=== PATIENT | female | born 1970 | race Caucasian/White ===

== ENCOUNTER 2018-05-25 08:17 | Day surgery (SDC) | payer MEDICAID ==
[~2018-05-25 08:17] MED LIST: Midazolam 1 MG/ML 2 ML SDV ONE; Propofol 200 MG/20 ML SDV ONE; fentaNYL 100 MCG/2 ML SDV ONE
[2018-05-25] MEDS ORDERED: MVI, Adult with Vitamin K 10 ML, Thiamine 100 MG, Chromium/Copper/Mang/Selen/Zn 1 ML in... IV ONE ×4 (09:00)
[2018-05-25] MEDS ORDERED: Glycopyrrolate 0.2 MG/ML 2 ML SDV IVPUSH ONE (09:00)
[2018-05-25] MEDS ORDERED: Lactated Ringers 1,000 ML IV SCH (09:00)
[2018-05-25] MEDS ORDERED: Midazolam 1 MG/ML 2 ML SDV ONE (09:07)
[2018-05-25] MEDS ORDERED: fentaNYL 100 MCG/2 ML SDV ONE (09:07)
[2018-05-25] MEDS ORDERED: Propofol 200 MG/20 ML SDV ONE (09:07)
--- NOTE | 2018-05-26 11:09 | OR ---
DATE OF PROCEDURE: 05/25/2018 PREOPERATIVE DIAGNOSIS: Severe reflux and aspiration status post placement of laparoscopic adjustable gastric band. POSTOPERATIVE DIAGNOSES: 1. Marked esophageal dilation with retained esophageal fluid above laparoscopic adjustable gastric band. 2. Polypoid mass (1.5 cm) at junction of body and antrum of stomach. OPERATIVE PROCEDURE: Esophagogastroduodenoscopy with gastric polypectomy (91667). ANESTHESIA: IV sedation. INDICATIONS FOR PROCEDURE: A 47-year-old status post a laparoscopic adjustable gastric band placement in 2007. In the last several months, the patient has had progressively severe heartburn. This is persistent despite the band being deflated, and she is also having apparently some aspiration episodes related to the retained fluid within the esophagus. Plan is to proceed with upper endoscopy for evaluation of the band status. The potential risks of the procedure including bleeding and perforation were discussed, and the patient wishes to proceed. DETAILS OF PROCEDURE: The patient was taken to the operating room, placed in a left lateral decubitus position. IV sedation was administered after which the upper GI endoscope was passed orally into the esophagus. The esophagus was noted to be markedly dilated and distally was reddened and raw in appearance. A large amount of fluid was present within the esophagus along with some scattered solid food particles. This was since evacuated by means of suction at this point. As the scope passed further through the upper aspect of the stomach, the imprint of the band was present. This was widely open; however, there was no mechanical obstruction at the level of the band and the band appeared to be generally in a normal position. Within the stomach, retroflexion view failed to show any areas of erosion of the band, and as one peered down toward the more distal stomach, a polypoid mass was present, more or less at the junction of the body and antrum of the stomach. This measured around 1.5 cm. The pyloric channel and visualized portion of the duodenum were unremarkable. At this point, the polyp was removed by means of the cautery snare technique, and this was grasped with a basket and then retrieved. Good hemostasis was noted at the polypectomy site and the procedure then concluded. The plan will be to await the pathology report on the polypectomy, and assuming that is a benign entity, we would then address the insurance carrier regarding conversion of the band status to the Antonio-en-Y gastric bypass status. Elie Sahni MD /[id number]
== END 2018-05-25 13:00 | disposition home or self-care (01) ==
LOC: JP.SDS 08:17
PROVIDERS: ATTEND Surgery
DX: K21.9 Gastro-esophageal reflux disease without esophagitis (principal); K31.7 Polyp of stomach and duodenum; F17.210 Nicotine dependence, cigarettes, uncomplicated; Z98.84 Bariatric surgery status
CPT/HCPCS: 43251; J2250; J2704; J3010; J3411; J3490; J7120

== ENCOUNTER 2018-09-15 07:30 | Inpatient (IN) | payer MEDICAID ==
[2018-09-29] MEDS ORDERED: Bupivacaine 0.5% 50 ML MDV ONE (06:46)
[2018-09-29] MEDS ORDERED: cefOXitin 2 GM Vial ONE (06:46)
[2018-09-29] MEDS ORDERED: Celecoxib 200 MG Cap PO ONE (09:00)
[2018-09-29] MEDS ORDERED: Gabapentin 300 MG Cap PO ONE (09:00)
[2018-09-29] MEDS ORDERED: Albuterol/Ipratropium 3.0-0.5 MG/3 ML Neb Soln NEB ONE (09:00)
[2018-09-29] MEDS ORDERED: Scopolamine 1.5 MG Transdermal Patch TOP ONE (09:00)
[2018-09-29] MEDS ORDERED: cefOXitin 2 GM in Sodium Chloride 0.9% 50 ML IV ONE (09:00)
[2018-09-29] MEDS ORDERED: Acetaminophen 500 MG Tab PO ONE (09:00)
[2018-09-29] MEDS ORDERED: Dextrose 5%-Lactated Ringers 1,000 ML IV SCH (09:00)
[2018-09-29] MEDS ORDERED: fentaNYL 250 MCG/5 ML SDV ONE (10:04)
[2018-09-29] MEDS ORDERED: Midazolam 1 MG/ML 2 ML SDV ONE (10:04)
[2018-09-29] MEDS ORDERED: Neostigmine Methylsulfate 1 MG/ML 5 ML Syringe ONE (10:05)
[2018-09-29] MEDS ORDERED: Succinylcholine 200 MG/10 ML MDV ONE (10:05)
[2018-09-29] MEDS ORDERED: Propofol 200 MG/20 ML SDV ONE (10:05)
[2018-09-29] MEDS ORDERED: Dexamethasone 4 MG/ML SDV ONE (10:05)
[2018-09-29] MEDS ORDERED: Rocuronium 50 MG/5 ML Vial ONE ×2 (10:05→10:52)
[2018-09-29] MEDS ORDERED: Ondansetron 4 MG/2 ML SDV ONE (10:05)
[2018-09-29] MEDS ORDERED: Glycopyrrolate 0.2 MG/ML 5 ML MDV ONE (10:05)
[2018-09-29] MEDS ORDERED: Ketamine 500 MG/5 ML MDV IV SCH (11:00)
[2018-09-29] MEDS ORDERED: Lidocaine 2% 100 MG/5 ML Syringe IVPUSH SCH (11:00)
[2018-09-29] MEDS ORDERED: Ketamine 50 MG in Sodium Chloride 0.9% 49.5 ML IV SCH (11:00)
[2018-09-29] MEDS ORDERED: Lactated Ringers 1,000 ML ONE (12:14)
[2018-09-29] MEDS ORDERED: Lidocaine 0.4%/D5W 2 GM/500 ML BAG IV SCH (12:30)
[2018-09-29] MEDS ORDERED: fentaNYL 100 MCG/2 ML SDV ONE (12:38)
[2018-09-29] MEDS ORDERED: Metoclopramide 10 MG/2 ML SDV IVPUSH PRN (14:23)
[2018-09-29] MEDS ORDERED: Ondansetron 4 MG/2 ML SDV IVPUSH PRN (14:23)
[2018-09-29] MEDS ORDERED: HYDROmorphone 0.5 MG/0.5 ML Syringe IVPUSH PRN (14:23)
[2018-09-29] MEDS ORDERED: Labetalol 20 MG/4 ML Syringe IVPUSH PRN (14:23)
[2018-09-29] MEDS ORDERED: diphenhydrAMINE 50 MG/ML SDV IVPUSH PRN (14:23)
[2018-09-29] MEDS ORDERED: Albuterol/Ipratropium 3.0-0.5 MG/3 ML Neb Soln INH PRN (14:23)
[2018-09-29] MEDS ORDERED: HYDROmorphone 1 MG/ML Syringe IV PRN (14:23)
[2018-09-29] MEDS ORDERED: hydrOXYzine HCl 100 MG/2 ML SDV IM PRN (14:23)
[2018-09-29] MEDS: Dextrose 5%-Lactated Ringers 1,000 ML IV SCH ×2 (14:30→21:30)
[2018-09-29] MEDS: Acetaminophen Soln 650 MG/20.3 ML UD Cup PO SCH ×2 (15:37→21:03)
[2018-09-29] MEDS: Albuterol/Ipratropium 3.0-0.5 MG/3 ML Neb Soln INH SCH ×2 (15:37→21:02)
[2018-09-29] MEDS: cefOXitin 2 GM in Sodium Chloride 0.9% 50 ML IV SCH ×2 (15:37→21:30)
[2018-09-29] MEDS ORDERED: MVI, Adult with Vitamin K 10 ML, Thiamine 200 MG, Chromium/Copper/Mang/Selen/Zn 1 ML in... IV SCH ×4 (16:00)
[2018-09-29] MEDS ORDERED: Pantoprazole 40 MG Vial IVPUSH SCH (16:00)
[2018-09-29] MEDS: Heparin Sodium 5,000 Units/ML Vial SUBCUT SCH (17:17)
[2018-09-29] MEDS: Montelukast 10 MG Tab PO SCH (21:02)
[2018-09-29] MEDS: Gabapentin 250 MG/5 ML Solution ML 470 ML Bottle PO SCH (21:02)
[2018-09-30] MEDS ORDERED: Iopamidol 612 MG/ML 50 ML SDV PO ONE (03:11)
[2018-09-30] MEDS: Dextrose 5%-Lactated Ringers 1,000 ML IV SCH (03:24)
[2018-09-30] MEDS: cefOXitin 2 GM in Sodium Chloride 0.9% 50 ML IV SCH (03:59)
[2018-09-30] MEDS: Acetaminophen Soln 650 MG/20.3 ML UD Cup PO SCH ×4 (03:59→21:03)
--- NOTE | 2018-09-30 04:48 | CRLCR ---
Indication: Lap band conversion to Antonio-en-Y, evaluate for leak Technique: KUB 2 view Comparison: None Findings/Impression: : Two views of the abdomen were obtained after administration of oral contrast. Images were obtained at 3:26 a.m. and 3:44 a.m.. Oral contrast opacifies the distal esophagus, stomach, and small bowel. There is a small amount of residual oral contrast in the upper abdomen on the 3:44 a.m. image. Although this may be residual contrast in the stomach, a small leak cannot be excluded. There is a ANNA MARIE drain in the left upper quadrant. Surgical coleman seen in the right upper quadrant. Nonspecific bowel gas pattern. Findings were discussed with Mariah Santana RN at 4:48 a.m. on September 30, 2018. Dictated by Sophie Jackson MD @ Sep 30 2018 4:45AM (Electronically Signed)
[2018-09-30] MEDS: Heparin Sodium 5,000 Units/ML Vial SUBCUT SCH ×2 (05:26→18:49)
--- NOTE | 2018-09-30 07:23 | CRLCR ---
HISTORY: Antonio-en-Y gastric bypass. TECHNIQUE: One view of the abdomen. COMPARISON: 09/30/2018. FINDINGS: The previously seen oral contrast material has reached the colon. No dilated small bowel loops. Surgical clips within the right upper quadrant. Drain within the left abdomen. IMPRESSION: 1. Oral contrast material has reached the colon. 2. No dilated small bowel loops. Dictated by Fredo Donovan MD @ 09/30/2018 7:22:00 AM Dictated by: Fredo Donovan MD @ 09/30/2018 07:22:09 (Electronically Signed)
[2018-09-30] MEDS ORDERED: Ondansetron 4 MG Tab.DIS PO PRN (08:06)
[2018-09-30] MEDS ORDERED: Albuterol 8 GM Inhaler INH PRN (08:07)
[2018-09-30] MEDS ORDERED: Dextrose 5%-Lactated Ringers 1,000 ML IV SCH (08:15)
[2018-09-30] MEDS ORDERED: Non-Formulary Medication 1 Each (Levothyroxine Sodium [Synthroid] 125 MCG) PO SCH (09:00)
[2018-09-30] MEDS: Tolterodine 2 MG Tab PO SCH ×2 (09:26→20:54)
[2018-09-30] MEDS: Levothyroxine 100 MCG, Levothyroxine 25 MCG PO SCH ×2 (09:26)
[2018-09-30] MEDS: Pseudoephedrine 30 MG Tab PO SCH ×3 (09:26→21:03)
[2018-09-30] MEDS: buPROPion 150 MG Tab.SR PO SCH ×2 (09:27→20:56)
[2018-09-30] MEDS: Nystatin Topical Powder 15 GM Bottle TOP SCH ×3 (09:27→21:03)
[2018-09-30] MEDS: Loratadine 10 MG Tab PO SCH (09:27)
[2018-09-30] MEDS: Celecoxib 200 MG Cap PO SCH (09:27)
[2018-09-30] MEDS: Fluticasone Propionate Nasal Spray 16 GM Bottle NASBOTH SCH (09:28)
[2018-09-30] MEDS: SCOPOLAMINE PATCH CHECK TOP SCH (09:28)
[2018-09-30] MEDS: Gabapentin 250 MG/5 ML Solution ML 470 ML Bottle PO SCH ×3 (09:32→20:59)
--- NOTE | 2018-09-30 09:45 | PN ---
DATE OF SERVICE: 09/30/2018 SUBJECTIVE: Sophie is postop day #1. Her upper GI this morning was normal. She states her pain is controlled. She has no other questions or concerns. OBJECTIVE: GENERAL: Sophie Davenport is a pleasant 47-year-old female. She is alert, orientated, lying in bed. VITAL SIGNS: TPR is 97.2, 69, 16. Blood pressure 104/59. HEENT: Negative. NECK: Supple. HEART: Regular rate and rhythm. LUNGS: Clear. ABDOMEN: Dressings dry and intact. Abdominal binder is on. ANNA MARIE drain draining a light pink drainage. EXTREMITIES: Without peripheral edema. ASSESSMENT: Diagnostic laparoscopy with removal of laparoscopic band system, formation of Antonio-en-Y gastric bypass surgery, liver biopsy, and small bowel resection, for intolerance to laparoscopic gastric band, persistent morbid obesity, hepatomegaly, foreshortened small bowel mesentery. Date of surgery, 09/29/2018. Surgeon, Elie Sahni M.D. PLAN: 1. Decrease IV of D5LR to 100 mL per hour. 2. Step-2 gastric bypass diet with no cereal. 3. Dressing off, may shower. 4. Communication order, 3 med cups per hour, 1 every 20 minutes, record at bedside. 5. Albuterol 2 puffs every 6 hours p.r.n. shortness of breath. 6. Wellbutrin SR 150 mg p.o. b.i.d. 7. Flonase 2 sprays in each nostril daily. 8. Levothyroxine 125 mcg p.o. daily. 9. Claritin-D 12-hour 1 tablet every 12 hours. 10.Singulair 10 mg p.o. at bedtime. 11.Nystatin 1 applicator topical q.i.d. p.r.n. to affected area. 12.Zofran ODT 4 mg q.4 hours p.r.n. nausea. 13.Detrol LA 4 mg p.o. daily. 14.Good pulmonary toilet. 15.We will evaluate p.r.n. or in a.m. Anabell Giron PA-C /[id number]
[2018-09-30] MEDS: Albuterol/Ipratropium 3.0-0.5 MG/3 ML Neb Soln INH SCH ×4 (09:47→20:54)
[2018-09-30] MEDS: Montelukast 10 MG Tab PO SCH (20:56)
[2018-09-30] MEDS ORDERED: Montelukast 10 MG Tab PO SCH (21:00)
[2018-10-01] MEDS: Acetaminophen Soln 650 MG/20.3 ML UD Cup PO SCH ×2 (05:09→09:15)
[2018-10-01] MEDS: Pseudoephedrine 30 MG Tab PO SCH ×2 (05:09→09:16)
[2018-10-01] MEDS: Heparin Sodium 5,000 Units/ML Vial SUBCUT SCH (05:10)
[2018-10-01] MEDS: Nystatin Topical Powder 15 GM Bottle TOP SCH ×2 (05:10→09:16)
[2018-10-01] MEDS: Albuterol/Ipratropium 3.0-0.5 MG/3 ML Neb Soln INH SCH ×2 (06:59→10:57)
[2018-10-01] MEDS: Levothyroxine 100 MCG, Levothyroxine 25 MCG PO SCH ×2 (08:03)
[2018-10-01] MEDS: Celecoxib 200 MG Cap PO SCH (08:18)
[2018-10-01] MEDS: Fluticasone Propionate Nasal Spray 16 GM Bottle NASBOTH SCH (08:18)
[2018-10-01] MEDS: Tolterodine 2 MG Tab PO SCH (08:18)
[2018-10-01] MEDS: Loratadine 10 MG Tab PO SCH (08:18)
[2018-10-01] MEDS: SCOPOLAMINE PATCH CHECK TOP SCH (08:19)
[2018-10-01] MEDS: buPROPion 150 MG Tab.SR PO SCH (08:19)
[2018-10-01] MEDS ORDERED: Cyanocobalamin (Vitamin B12) 1,000 MCG/ML SDV IM ONE (09:00)
[2018-10-01] MEDS: Gabapentin 250 MG/5 ML Solution ML 470 ML Bottle PO SCH (09:15)
--- NOTE | 2018-10-04 12:29 | DISCH ---
FINAL DIAGNOSES: 1. Intolerance to laparoscopic adjustable gastric band. 2. Morbid obesity. 3. Foreshortened small bowel mesentery requiring small bowel resection for adequate mobility of jejunojejunostomy. 4. History of anxiety and depression. 5. History of endometriosis. 6. History of umbilical hernia repair. 7. History of methicillin-resistant Staphylococcus aureus infection. 8. Treated hypothyroidism. 9. Tobacco use disorder. 10.Asthma. 11.Marked hepatomegaly. OPERATIVE PROCEDURES: Done on 09/29/2018, diagnostic laparoscopy with: 1. Removal of laparoscopic adjustable gastric band system. 2. Formation of Antonio-en-Y gastric bypass. 3. Nura-Cut needle liver biopsy. 4. Small bowel resection. SUMMARY: This is a 47-year-old presenting with progressive intolerance to laparoscopic adjustable gastric band. On the day of admission, the patient underwent conversion of band status to a Antonio-en-Y gastric bypass. She did have quite a bit of foreshortening of her small bowel mesentery requiring segmental small bowel resection to allow adequate mobility of the jejunojejunostomy. Postoperatively, the patient has had no significant problems. She is tolerating a step-2 diet, which she will be sent home on. She will be following up with Anabell Giron at [facility] on 10/09/2018, and medications will be as per the medication reconciliation form.
--- NOTE | 2018-10-06 08:12 | OR ---
DATE OF PROCEDURE: 09/29/2018 SURGEON: Elie Sahni MD PREOPERATIVE DIAGNOSES: 1. Intolerance to laparoscopic adjustable gastric band. 2. Persistent morbid obesity. POSTOPERATIVE DIAGNOSES: 1. Intolerance to laparoscopic adjustable gastric band. 2. Persistent morbid obesity. 3. Marked hepatomegaly. 4. Foreshortened small bowel mesentery requiring small bowel resection to allow adequate mobility of jejunojejunostomy. OPERATIVE PROCEDURES: Diagnostic laparoscopy with: 1. Removal of laparoscopic adjustable gastric band system (08760). 2. Formation of Antonio-en-Y gastric bypass (95005). 3. Nura-Cut needle liver biopsy (52669). 4. Small bowel resection (92340). ANESTHESIA: General. INDICATION FOR PROCEDURE: This is a 47-year-old, status post previous laparoscopic adjustable gastric band placement, presenting with ongoing intolerance to the band system, as well as persistent morbid obesity. After preoperative evaluation and discussion, she wished to proceed with conversion of band status to Antonio-en-Y gastric bypass. Potential risks including bleeding, infection, leaks from various GI tract closures, problems with bowel obstruction over time, as well as the possibility of cardiopulmonary, septic, or hemorrhagic complications leading to were discussed, and the patient wishes to proceed. DETAILS OF PROCEDURE: The patient was taken to the operating room. After general endotracheal anesthesia was induced, she was placed in a lithotomy position. Decker catheter was inserted, which was removed at the end of the procedure. The abdomen was prepped and draped. At 15 cm inferior and 5 cm left of the xiphoid process, a transverse incision was made, and the peritoneal cavity entered under direct vision with an Optiview trocar, inflated to 15 mmHg pressure with CO2. Laparoscope was reinserted and no underlying trocar insertion site injuries were seen. Following this, five additional trocars were placed across the upper and midabdomen. General exploration was undertaken. The patient was noted to have marked hepatomegaly with liver volume being roughly 2 to 3 times normal with liver grossly fatty infiltrated. Nura-Cut needle biopsies were obtained from the left lobe of liver. Minimal bleeding from the biopsy sites was controlled with electrocautery. At this point, the dissection of adhesions between the band system and the liver was undertaken with Harmonic Scalpel and electrocautery. This then allowed identification of the band system. The band was then freed up from the overlying encasing scar with electrocautery and then divided and pulled through the route around the stomach where the band had been placed. Port tubing was then disconnected and band system thus far removed was then taken out through the left lateral trocar site. At this point, the pouch formation was accomplished with 3 firings of the UNA black loads taken on the upper extent of the band imprint around the gastric cardia and, at that point, the pouch formation staple line appeared to be satisfactory. The small bowel was then identified at the ligament of Treitz. Small bowel was then traced out 150 cm from the ligament of Treitz, where it was divided with a UNA stapler. The small bowel was then traced out additional 200 cm, where the [id number] enteroenterostomy was accomplished with internal firing of the Endo-UNA 60 mm stapler. Common opening was then closed transversely with the same stapler and angles of anastomosis and mesenteric defect were approximated with some 0 Ethibond stitch along with fibrin sealant. Of note, the small bowel mesentery was fairly foreshortened making the subsequent jejunojejunostomy at risk for being overly tight in terms of tension at the gastrojejunostomy. So, prior to the formation of the jejunojejunostomy, roughly 10 cm of the biliopancreatic limb side of the small bowel had been excised, the underlying mesentery had been divided with a UNA stapler, as was the small bowel. This then allowed an obvious increased mobility of the jejunojejunostomy upon its subsequent formation. The anvil of a 25-mm EEA stapler was attached to [place] sump type tube. The latter was brought down through the mouth and taken out through a small opening in the gastric pouch, allowing the anvil likewise to be pulled down to within the gastric pouch. The divided end of the Antonio limb was then opened and main body of the EEA stapler passed several centimeters into the lumen of small bowel, brought up the anvil and united with it, thus creating the gastrojejunostomy. Upon removal of the stapler, double donuts of mucosa were noted within it. Small bowel was closed off with a vascular staple line. Gastrojejunostomy was reinforced with 3-0 Vicryl seromuscular stitch, along with fibrin sealant. Leak test was accomplished with injection of 120 mL of air in the gastric pouch while submerged with cefoxitin-containing saline solution. No leaks were identified. Two Kyle-Briceno drains were then planed adjacent to the gastrojejunostomy and taken out subcostal trocar site. With no further problems noted, trocars were removed, and the peritoneal cavity deflated. Attention was then taken to the port in the left lower quadrant. Using the original camera port, which was close by to the subcutaneous band system port, was extended and this allowed removal of the port using electrocautery, and that port and remaining port tubing were then removed without difficulty. That incision was closed with 2 layers of 3-0 Vicryl stitch deep and each incisions were then closed with 4-0 Vicryl skin stitch and drain affixed with 4-0 Vicryl stitch as well. The patient was taken to the recovery room in a satisfactory condition. There were no evident complications. Elie Sahni MD /[id number]
== END 2018-10-01 11:15 | disposition home or self-care (01) | DRG 327 ==
LOC: EDSTATUS 09-29 08:00 → JP.SDS 09-29 08:28 → JP.MS 09-29 08:28 → JP.2SS 09-29 13:15
PROVIDERS: ADMIT Surgery; ATTEND Surgery
PROC: 0DB84ZZ Excision of Small Intestine, Percutaneous Endoscopic Approach (ICD-10-PCS; principal; 2018-09-29)
PROC: 0DP64CZ Removal of Extraluminal Device from Stomach, Percutaneous Endoscopic Approach (ICD-10-PCS; principal; 2018-09-29)
PROC: 0D164ZA Bypass Stomach to Jejunum, Percutaneous Endoscopic Approach (ICD-10-PCS; principal; 2018-09-29)
PROC: 0FB24ZX Excision of Left Lobe Liver, Percutaneous Endoscopic Approach, Diagnostic (ICD-10-PCS; principal; 2018-09-29)
DX: K95.09 Other complications of gastric band procedure (principal); Z68.41 Body mass index [BMI] 40.0-44.9, adult; Y83.8 Other surgical procedures as the cause of abnormal reaction of the patient, or of later complication, without mention of misadventure at the time of the procedure; E66.01 Morbid (severe) obesity due to excess calories; F41.9 Anxiety disorder, unspecified; F32.9 Major depressive disorder, single episode, unspecified; E03.9 Hypothyroidism, unspecified; F17.200 Nicotine dependence, unspecified, uncomplicated; J45.909 Unspecified asthma, uncomplicated; R16.0 Hepatomegaly, not elsewhere classified; G47.00 Insomnia, unspecified; Z90.49 Acquired absence of other specified parts of digestive tract; Z90.710 Acquired absence of both cervix and uterus; Z79.899 Other long term (current) drug therapy; Z79.890 Hormone replacement therapy; Z88.8 Allergy status to other drugs, medicaments and biological substances; Z91.030 Bee allergy status; Z86.14 Personal history of Methicillin resistant Staphylococcus aureus infection; Z91.040 Latex allergy status
CPT/HCPCS: 36415; 74018; 74240; 86850; 86900; 86901; 88300; 88307; 88313; 94640; 94762; A9270-GY; C9113; J0171; J0330; J0694; J1100; J1170; J1644; J2001; J2250; J2405; J2704; J2710; J2795; J3010; J3411; J3420; J3490; J7042; J7050; J7120; J7620-GY; Q9967